=== PATIENT | female | born 1945 | race Asian ===

== ENCOUNTER 2018-08-08 23:25 | Emergency (ER) | payer OTHER ==
[~2018-08-08] VITALS: Ht 167.6 cm; Wt 113.4 kg
[2018-08-08 23:40] VITALS: BP 129/70; TEMP 97.3
[2018-08-09 00:22] LABS: PLATELET COUNT 175 K/uL (152-353)
[2018-08-09 00:26] LABS: POTASSIUM 3.7 mmol/L (3.6-5.2)
[2018-08-09] MEDS ORDERED: CORRECTOL100 MG PO (09:48)
[2018-08-09] MEDS ORDERED: DIVA250T2 PO (10:03)
[2018-08-09] MEDS ORDERED: VENL37.511 PO ×2 (10:05→10:11)
[2018-08-09] MEDS ORDERED: LAMICTAL25 MG PO ×2 (10:07)
[2018-08-09] MEDS ORDERED: DECUBI-VITE PO (10:11)
[2018-08-09] MEDS ORDERED: FURO20TA67 PO (10:12)
[2018-08-09] MEDS ORDERED: LEVO-T25 MCG PO (10:13)
[2018-08-09] MEDS ORDERED: LIPITOR10 MG PO (10:14)
[2018-08-09] MEDS ORDERED: [UNRECOGNIZED DRUG - OTHER] PO (10:15)
[2018-08-09] MEDS ORDERED: PANTOPRAZOLE 40MG TA PO (10:16)
[2018-08-09] MEDS ORDERED: RISP25IN IM (10:17)
[2018-08-09] MEDS ORDERED: TRAZODONE HYDR150 MG PO (10:18)
[2018-08-09] MEDS ORDERED: VITAMIN D31000 UNI1 PO (10:19)
[2018-08-09] MEDS ORDERED: FERROUS SULF325 M1 PO (10:23)
[2018-08-09] MEDS ORDERED: DIVA500T2 PO (10:25)
[2018-08-09] MEDS ORDERED: NEURONTIN 100M100 MG PO (10:26)
[2018-08-09] MEDS ORDERED: ACETAMINOPHEN PO (10:29)
[2018-08-09] MEDS ORDERED: ALBUSOL INH (10:30)
[2018-08-09] MEDS ORDERED: OXYGEN NAS (17:23)
== END 2018-08-09 01:36 | disposition other institution (70) ==
LOC: ED 23:25
PROVIDERS: Family Medicine
DX: F20.89 Other schizophrenia (principal); F32.89 Other specified depressive episodes; R46.89 Other symptoms and signs involving appearance and behavior; Z04.6 Encounter for general psychiatric examination, requested by authority
CPT/HCPCS: 80053; 85027; 93005; 99284

== ENCOUNTER 2018-08-29 20:10 | Emergency (ER) | payer OTHER ==
[~2018-08-29] VITALS: Ht 154.9 cm; Wt 113.4 kg
[~2018-08-29 20:10] MED LIST: ACETAMINOPHEN PO; ALBUSOL INH; CORRECTOL100 MG PO; DECUBI-VITE PO; DIVA250T2 PO; DIVA500T2 PO; FERROUS SULF325 M1 PO; FURO20TA67 PO; LAMICTAL25 MG PO; LEVO-T25 MCG PO; LIPITOR10 MG PO; NEURONTIN 100M100 MG PO; OXYGEN NAS; PANTOPRAZOLE 40MG TA PO; RISP25IN IM; TRAZODONE HYDR150 MG PO; VENL37.511 PO; VITAMIN D31000 UNI1 PO; [UNRECOGNIZED DRUG - OTHER] PO
[2018-08-30 02:05] VITALS: BP 104/59; TEMP 93.8
== END 2018-08-30 02:20 | disposition short-term general hospital (02) ==
LOC: ED 20:10
DX: J18.9 Pneumonia, unspecified organism (principal)
CPT/HCPCS: 96365; 96375; 99285; J0696